=== PATIENT | female | born 1990 | race Caucasian/White ===

== ENCOUNTER → 2024-04-08 | Outpatient (CLI) | payer OTHER | LOC: M WHC 08:35 | PROVIDERS: ATTEND Physician Assistant | DX: N63.10 Unspecified lump in the right breast, unspecified quadrant (principal); N63.20 Unspecified lump in the left breast, unspecified quadrant; N60.02 Solitary cyst of left breast; N60.01 Solitary cyst of right breast | CPT/HCPCS: 76641; 77066; G0279 ==

== ENCOUNTER → 2024-05-07 | Outpatient (CLI) | payer OTHER | LOC: M LAB 09:06 | PROVIDERS: ATTEND Obstetrics & Gynecology Reproductive Endocrinology | DX: Z31.430 Encounter of female for testing for genetic disease carrier status for procreative management (principal) ==